=== PATIENT | female | born 1995 | race Caucasian/White ===

== ENCOUNTER 2017-09-07 18:16 | Emergency (ER) | payer BC, OTHER ==
[~2017-09-07] VITALS: Ht 167.6 cm; Wt 70.3 kg
[2017-09-07] MEDS ORDERED: CYCLOBENZAPRINE 10 MG (FLEXERIL) TAB PO STA (19:35)
[2017-09-07] MEDS ORDERED: KETOROLAC 30 MG/ML VIAL IVP STA (19:35)
[2017-09-07 20:10] LABS: BILIRUBIN,URINE NEGATIVE (NEGATIVE); CLARITY,URINE SLIGHTLY CLOUDY; COLOR,URINE YELLOW; GLUCOSE, URINE (UA) NEGATIVE (NEGATIVE); KETONES,URINE NEGATIVE (NEGATIVE); LEUKOCYTE ESTERASE ,URINE 2+ (NEGATIVE); NITRITE,URINE NEGATIVE (NEGATIVE); PH,URINE 6 (5-9); PROTEIN,URINE NEGATIVE (NEGATIVE); UROBILINOGEN,URINE NORMAL (NORMAL)
[2017-09-07 20:12] LABS: BASOPHILS # (AUTO) 0.1 10^3/uL (0.0-0.1); BASOPHILS % (AUTO) 2 % (0-10); EOSINOPHILS # (AUTO) 0.1 10^3/uL (0.0-0.3); EOSINOPHILS % (AUTO) 1 % (0-10); HEMATOCRIT 37 % (35-52); HEMOGLOBIN 12.9 G/DL (11.5-16.0); LYMPHOCYTES # (AUTO) 2.5 X 10^3 (1.0-4.0); LYMPHOCYTES % (AUTO) 47 % (12-44); MEAN CORPUSCULAR HEMOGLOBIN 30 PG (25-34); MEAN CORPUSCULAR HGB CONC 35 G/DL (32-36); MEAN CORPUSCULAR VOLUME 87 FL (80-99); MEAN PLATELET VOLUME 10.7 FL (7.4-10.4); MONOCYTES # (AUTO) 0.8 X 10^3 (0.0-1.0); MONOCYTES % (AUTO) 15 % (0-12); NEUTROPHILS # (AUTO) 1.9 X 10^3 (1.8-7.8); NEUTROPHILS % (AUTO) 36 % (42-75); PLATELET COUNT 151 10^3/uL (130-400); RED BLOOD COUNT 4.25 10^6/uL (4.35-5.85); RED CELL DISTRIBUTION WIDTH 12.2 % (10.0-14.5); WHITE BLOOD COUNT 5.3 10^3/uL (4.3-11.0)
[2017-09-07 20:30] LABS: BACTERIA,URINE LARGE /HPF; RBC,URINE 0-2 /HPF
[2017-09-07 20:31] LABS: ALANINE AMINOTRANSFERASE 97 U/L (0-55); ALBUMIN 4.1 GM/DL (3.2-4.5); ALKALINE PHOSPHATASE 98 U/L (40-136); BILIRUBIN,TOTAL 0.5 MG/DL (0.1-1.0); BUN/CREATININE RATIO 9; CALCIUM 8.7 MG/DL (8.5-10.1); CARBON DIOXIDE 21 MMOL/L (21-32); CHLORIDE 105 MMOL/L (98-107); CREATININE SERUM 0.77 MG/DL (0.60-1.30); GFR ESTIMATED > 60; GLUCOSE 85 MG/DL (70-105); POTASSIUM 3.4 MMOL/L (3.6-5.0); SODIUM 139 MMOL/L (135-145); TOTAL PROTEIN 7.2 GM/DL (6.4-8.2)
[2017-09-07] MEDS ORDERED: RX-CYCLOBENZAPRINE 10 MG (FLEXERIL) TAB PPK#3 PO STA (20:46)
[2017-09-07] MEDS ORDERED: TRIM/SULFAMETH 160/800 (SEPTRA DS) TAB PO STA (20:46)
[2017-09-07] MEDS ORDERED: SULF1TAB35 PO (20:50)
[2017-09-07] MEDS ORDERED: CYCL10TA9 PO (20:51)
--- NOTE | 2017-09-07 20:51 | ED Headache ---
General Chief Complaint: Head/Cervical Problems Stated Complaint: HEADACHE/NECK STIFFNESS Nursing Triage Note: PT REPORTS HEADACHE FOR ABOUT A WEEK AND NECK PAIN THAT STARTED ABOUT 3 DAYS [employer]. SHE REPORTS POSSIBLE FEVERS AT HOME. SHE DENIES N/V/D. History of Present Illness Date Seen by Provider: Sep 07, 2017 Time Seen by Provider: 19:15 Initial Comments 21-year-old female evaluated for neck pain and headache. She reports for the last 3-4 days having a headache it is now starting to cause her neck pain. He recently started a new job where she sits for a long period of time, she is also more stressed and feels like her neck is tight because of that. She denies any fevers or cough. She was treated approximately 2-3 weeks ago for urinary tract infection with Cipro for 3 days. She denies any paresthesias or radicular symptoms in her upper extremities. She's been taking ibuprofen with minimal improvement in her symptoms. Timing/Duration: episodic Severity/Quality: mild Location: occipital Prior Headaches/Recent Trauma: no recent headache/trauma, occasional headaches Modifying Factors: improves with rest Associated Symptoms: No confusion, No fatigue, No facial pain, No fever/chills , flushing, No loss of consciousness, No nausea/vomiting, No nasal congestion, No nasal drainage, No numbness in legs/feet, No seizures, No sinus infection, stiff neck, No vision changes, No weakness Allergies and Home Medications Allergies Coded Allergies: No Known Drug Allergies (Unverified , 09/07/17) Home Medications Cyclobenzaprine HCl 10 Mg Tablet, 10 MG PO Q8H PRN for SPASMS Prescribed by: LOUIS BOYER on 09/07/172050 Sulfamethoxazole/Trimethoprim 1 Each Tablet, 1 EACH PO BID Prescribed by: LOUIS BOYER on 09/07/172049 Patient Home Medication List Home Medication List Reviewed: Yes Constitutional: no symptoms reported, see HPI : No Musculoskeletal: see HPI, neck pain Psychiatric/Neurological: See HPI, Headache Past Bbbsfwn-Ybmjkf-Cocbiw Hx Patient Social History Alcohol Use: Occasionally Uses Recreational Drug Use: No Smoking Status: Never a Smoker 2nd Hand Smoke Exposure: No Recent Foreign Travel: No Contact w/Someone Who Travel: No Recent Infectious Disease Expo: No Recent Hopitalizations: No Ebola Symptoms: Denies Symptoms Listed Seasonal Allergies Seasonal Allergies: No Surgeries History of Surgeries: Yes Surgeries: Tonsillectomy Reviewed Nursing Assessment Reviewed/Agree w Nursing PMH: Yes Physical Exam Vital Signs Vital Signs - First Documented 09/07/17 18:20 Temp 98.5 Pulse 71 Resp 16 B/P (MAP) 122/68 Capillary Refill : General Appearance: WD/WN, no apparent distress HEENT: PERRL/EOMI, normal ENT inspection, TMs normal, pharynx normal Neck: full range of motion, supple, normal inspection, No lymphadenopathy (R), No lymphadenopathy (L), tender lateral, other (no nuchal rigidity) Cardiovascular: normal peripheral pulses, regular rate, rhythm, no murmur Respiratory: chest non-tender, lungs clear, normal breath sounds Gastrointestinal: normal bowel sounds, non tender, soft Extremities: normal range of motion, non-tender, normal inspection, normal capillary refill Psychiatric: alert, oriented x 3, depressed affect Crainal Nerves: normal hearing, normal speech Motor/Sensory: no motor deficit, no sensory deficit, no pronator drift Skin: normal color, warm/dry Progress/Results/Core Measures Results/Orders Lab Results Laboratory Tests Test 09/07/17 20:00 09/07/17 20:05 Range/Units Urine Color YELLOW Urine Clarity SLIGHTLY CLOUDY Urine pH 6 5-9 Urine Specific Ashley 1.010 L 1.016-1.022 Urine Protein NEGATIVE NEGATIVE Urine Glucose (UA) NEGATIVE NEGATIVE Urine Ketones NEGATIVE NEGATIVE Urine Nitrite NEGATIVE NEGATIVE Urine Bilirubin NEGATIVE NEGATIVE Urine Urobilinogen NORMAL NORMAL MG/DL Urine Leukocyte Esterase 2+ H NEGATIVE Urine RBC (Auto) 2+ H NEGATIVE Urine RBC 0-2 /HPF Urine WBC 5-10 H /HPF Urine Squamous Epithelial Cells 10-25 H /HPF Urine Crystals NONE /LPF Urine Bacteria LARGE H /HPF Urine Casts NONE /LPF Urine Mucus NEGATIVE /LPF Urine Culture Indicated YES White Blood Count 5.3 4.3-11.0 10^3/uL Red Blood Count 4.25 L 4.35-5.85 10^6/uL Hemoglobin 12.9 11.5-16.0 G/DL Hematocrit 37 35-52 % Mean Corpuscular Volume 87 80-99 FL Mean Corpuscular Hemoglobin 30 25-34 PG Mean Corpuscular Hemoglobin Concent 35 32-36 G/DL Red Cell Distribution Width 12.2 10.0-14.5 % Platelet Count 151 130-400 10^3/uL Mean Platelet Volume 10.7 H 7.4-10.4 FL Neutrophils (%) (Auto) 36 L 42-75 % Lymphocytes (%) (Auto) 47 H 12-44 % Monocytes (%) (Auto) 15 H 0-12 % Eosinophils (%) (Auto) 1 0-10 % Basophils (%) (Auto) 2 0-10 % Neutrophils # (Auto) 1.9 1.8-7.8 X 10^3 Lymphocytes # (Auto) 2.5 1.0-4.0 X 10^3 Monocytes # (Auto) 0.8 0.0-1.0 X 10^3 Eosinophils # (Auto) 0.1 0.0-0.3 10^3/uL Basophils # (Auto) 0.1 0.0-0.1 10^3/uL Sodium Level 139 135-145 MMOL/L Potassium Level 3.4 L 3.6-5.0 MMOL/L Chloride Level 105 98-107 MMOL/L Carbon Dioxide Level 21 21-32 MMOL/L Anion Gap 13 5-14 MMOL/L Blood Urea Nitrogen 7 7-18 MG/DL Creatinine 0.77 0.60-1.30 MG/DL Estimat Glomerular Filtration Rate > 60 BUN/Creatinine Ratio 9 Glucose Level 85 70-105 MG/DL Calcium Level 8.7 8.5-10.1 MG/DL Total Bilirubin 0.5 0.1-1.0 MG/DL Aspartate Amino Transf (AST/SGOT) 54 H 5-34 U/L Alanine Aminotransferase (ALT/SGPT) 97 H 0-55 U/L Alkaline Phosphatase 98 40-136 U/L Total Protein 7.2 6.4-8.2 GM/DL Albumin 4.1 3.2-4.5 GM/DL TSH [place] Testing 1.30 0.35-4.94 UIU/ML My Orders Orders - LOUIS BOYER Urine Bedside (09/07/17 19:35) Cbc With Automated Diff (09/07/17 19:35) Comprehensive Metabolic Panel (09/07/17 19:35) Thyroid Analyzer (09/07/17 19:35) Ua Culture If Indicated (09/07/17 19:35) Ketorolac Injection (Toradol Injection) (09/07/17 19:35) Cyclobenzaprine Tablet (Flexeril Tablet) (09/07/17 19:35) Urine Culture (09/07/17 20:00) Sulfamethoxazole/Trimet Ds Tab (Bactrim (09/07/17 20:46) Rx-Cyclobenzaprine Tablet (Rx-Flexeril T (09/07/17 20:46) Vital Signs/I&O Vital Sign - Last 12Hours 09/07/17 18:20 Temp 98.5 Pulse 71 Resp 16 B/P (MAP) 122/68 Point of Care Testing Urine -Bedside: Negative Progress Note : Time: 19:15 Progress Note Initial evaluation completed, recommended labs and UA. Cyclobenzaprine 10 mg and Toradol 30 mg IV for neck pain. 1999 patient reports mild improvement in her symptoms. 2030 UA results discussed with the patient, she denies UTI symptoms at this time. Will start Bactrim DS one now. Discharge planning and return precautions reviewed with the patient and her parents. All questions answered. Departure Impression Impression: Primary Impression: UTI (urinary tract infection) Qualified Codes: N30.01 - Acute cystitis with hematuria Additional Impression: Neck muscle strain Qualified Codes: S16.1XXA - Strain of muscle, fascia and tendon at neck level , initial encounter Disposition: HOME, SELF-CARE Condition: Improved Departure-Patient Inst. Decision time for Depature: 20:30 Referrals: NO,LOCAL PHYSICIAN (PCP/Family) Primary Care Physician Patient Instructions: Generalized Neck Pain (DC), Urinary Tract Infection, Adult (DC) Add. Discharge Instructions: Take antibiotics as prescribed. Follow-up at [facility] 2 days after completion of antibiotics to have urine checked. Increase water intake and empty bladder frequently. Use muscle relaxant as needed for neck pain. Alternate Tylenol 650 mg and ibuprofen 600 mg every 4 hours for pain. Follow-up at [facility] if symptoms are not improving. Return to emergency department if symptoms worsen, new problems or concerns. All discharge instructions reviewed with patient and/or family. Voiced understanding. Scripts Cyclobenzaprine HCl (Cyclobenzaprine HCl) 10 Mg Tablet 10 MG PO Q8H Y for SPASMS, #12 TAB 0 Refills Prov: MERLINLOUIS PLATE STACKER 09/07/17 Sulfamethoxazole/Trimethoprim (Bactrim Ds Tablet) 1 Each Tablet 1 EACH PO BID, #10 TAB 0 Refills Prov: LOUIS BOYER 09/07/17 Copy Copies To 1: DON PEREZ MD, AMY ARNP Sep 07, 2017 20:51
== END 2017-09-07 20:59 | disposition home or self-care (01) ==
LOC: ER 18:19
DX: S16.1XXA Strain of muscle, fascia and tendon at neck level, initial encounter (principal); N39.0 Urinary tract infection, site not specified; Z90.89 Acquired absence of other organs; X50.1XXA Overexertion from prolonged static or awkward postures, initial encounter
CPT/HCPCS: 36415; 80053; 81000; 84443; 84703; 85025; 87088; 99284